=== PATIENT | male | born 1975 | race Caucasian/White ===

== ENCOUNTER 2024-01-06 09:09 | Emergency (ER) | payer BC, SELFPAY ==
--- NOTE | 2024-01-06 09:22 | ED.EXTPRO ---
HPI - Extremity Problem General Chief complaint: Extremity Problem,Nontraumatic Stated complaint: RT Hand Pain Time Seen by Provider: 01/06/24 09:22 Source: patient Mode of arrival: ambulatory Limitations: no limitations History of Present Illness HPI Narrative: Lj is a 48-year-old male patient presenting to the clinic today with complaints of right hand pain/wrist pain x3 days. He reports he is having numbness and tingling to the right 4th and 5th fingers and does not have the ability to close his hand tightly. Is having pain in the hand and wrist and it is radiate up into the elbow. He denies any neck pain or neck injury in the past. Denies any shoulder pain. He denies any injury to his hand or wrist. 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 Related Data Home Medications Medication Instructions Recorded Confirmed lisinopril 10 mg tablet mg 01/06/24 pantoprazole 40 mg tablet,delayed mg PO 01/06/24 release Allergies Allergy/AdvReac Type Severity Reaction Status Date / Time pregabalin [From Lyrica] Allergy Other Verified 01/06/24 09:31 Review of Systems Review of Systems: Pertinent positives per HPI. Patient denies any fever, chills, rash, headache, visual changes, dizziness, cough, runny nose, sore throat, shortness of breath, chest pain, palpitations, nausea, vomiting, diarrhea, constipation, abdominal pain, or any urinary issues. PMFSH Comments At the time of my signature, I reviewed and agree with the nursing past medical, surgical, social, and family history. There is no relevant family history pertinent to the patient complaint. Exam Narrative: General: Well-developed, well nourished, in no apparent distress Head: Normocephalic, atraumatic. Cardio: Regular rate and rhythm, s1 and s2 normal, no murmur appreciated. Resp: Clear to auscultation bilaterally, no rhonchi, rales, wheezing or rubs. Musculoskeletal: No deformity, non-tender to palpation, positive Tinel's over the ulnar and radial aspect of the right wrist, negative Phalen's, negative Juanjose, grossly normal range of motion, muscle strength strong and equal, peripheral pulse strong, no edema, no cyanosis, normal gait and station Course Course Emergency Course: Portions of this record may have been created with voice recognition software. Level of Care: Express Care Visit Vital Signs Vital signs: Vital signs reviewed MDM - Extremity (Nontraumatic) MDM Narrative Medical decision making narrative: At the time of visit patient is resting comfortably on the exam table. Patient appears to be nontoxic. Plan: I suspect patient has wrist tendinitis versus early carpal tunnel syndrome. Will send in prescription for Medrol Dosepak and have the patient purchase a wrist cock-up splint wear this for a week in follow-up with his primary care doctor for further evaluation if symptoms persist. Supportive measures were discussed with the patient and they voiced understanding discharge instructions and agrees to treatment plan. Return precautions reviewed Differential Diagnosis Differential diagnosis: Likely gout and other (Wrist tendinitis, cervical radiculopathy, tennis elbow, golfer's elbow, carpal tunnel syndrome) Discharge Plan Discharge Clinical Impression: Right wrist tendinitis Patient Disposition: Home, Self-Care Condition: Stable Instructions: Antibiotic Form, Carpal Tunnel Syndrome (DC), Tendinitis (ED) Additional Instructions: I suspect this is likely wrist tendinitis versus carpal tunnel syndrome Rest, ice, elevate, and wear cock-up wrist splint as discussed Tylenol/motrin for pain as discussed. Take Medrol Dosepak as prescribed Try to avoid lifting more than 15 lb with the right wrist x1 week Follow up with your PCP if symptoms persist more than 1 week. Prescriptions: New methylprednisolone [Medrol (Arcadio)] 4 mg tablets,dose pack See Rx Instructions PO .COMPLEX Qty: 21 0RF Rx Instructions: marita
[2024-01-06 09:31] VITALS: BP 124/86; PULSE 69; RESP 18; TEMP 36.4; O2SAT 97
== END 2024-01-06 09:50 | disposition home or self-care (01) ==
PROVIDERS: Emergency Provider Nurse Practitioner Family
DX: M77.8 Other enthesopathies, not elsewhere classified (principal); Z79.899 Other long term (current) drug therapy
CPT/HCPCS: 99203; G0463